=== PATIENT | female | born 1975 | race Caucasian/White ===

== ENCOUNTER → 2016-02-20 11:28 | Outpatient (CLI) | payer BC ==
[2016-02-20 12:25] LABS: T4 THYROXIN - FREE 1.05 ng/dL (0.76-1.46); THYROID STIMULATING HORMONE 0.77 uIU/mL (0.36-3.74)
== END | disposition home or self-care (01) ==
LOC: D.LAB 11:28
PROVIDERS: Psychiatry & Neurology Psychiatry
DX: F32.9 Major depressive disorder, single episode, unspecified (principal)

== ENCOUNTER → 2016-03-15 08:07 | Outpatient (CLI) | payer MEDICAID | END | disposition home or self-care (01) | LOC: D.US 08:07 | DX: R14.0 Abdominal distension (gaseous) (principal) ==

== ENCOUNTER → 2016-04-03 12:05 | Outpatient (CLI) | payer MEDICAID | END | disposition home or self-care (01) | LOC: D.NM 12:05 | DX: R10.13 Epigastric pain (principal) ==

== ENCOUNTER → 2016-04-09 16:51 | Outpatient (CLI) | payer BC | END | disposition home or self-care (01) | LOC: D.MAMMO 13:30 | DX: Z12.31 Encounter for screening mammogram for malignant neoplasm of breast (principal) ==

== ENCOUNTER → 2016-07-30 09:53 | Outpatient (CLI) | payer MEDICAID | END | disposition home or self-care (01) | LOC: D.MRI 09:53 | DX: M25.551 Pain in right hip (principal); M70.61 Trochanteric bursitis, right hip ==

== ENCOUNTER → 2016-10-23 10:11 | Outpatient (CLI) | payer MEDICAID | END | disposition home or self-care (01) | LOC: D.US 09:30 | DX: N61.0 Mastitis without abscess (principal) ==

== ENCOUNTER → 2016-11-13 11:10 | Outpatient (CLI) | payer MEDICAID | END | disposition home or self-care (01) | LOC: D.RAD 11-11 13:00 | DX: K59.00 Constipation, unspecified (principal) ==

== ENCOUNTER → 2017-02-05 07:57 | Outpatient (CLI) | payer MEDICAID | END | disposition home or self-care (01) | LOC: D.MRI 01-27 15:30 | DX: R89.1 Abnormal level of hormones in specimens from other organs, systems and tissues (principal) ==

== ENCOUNTER → 2017-06-06 08:38 | Outpatient (CLI) | payer MEDICAID | END | disposition home or self-care (01) | LOC: D.CT 08:38 | DX: R10.13 Epigastric pain (principal) ==